=== PATIENT | female | born 1975 | race Caucasian/White ===

== ENCOUNTER → 2019-04-22 | Outpatient (CLI) | payer SELFPAY ==
--- NOTE | 2019-04-22 12:27 | PCVCIMAG ---
APPROVED REPORT Study performed: 04/22/2019 10:51:11 Exam: Stress Echocardiogram Indication: Palpitations, chest pressure Patient Location: Echo lab Stress Nurse: Adelita Kruger RN Status: routine Ht: 5 ft 7 in HR: 81 bpm BP: 104/70 mmHg Rhythm: NSR Procedure The patient underwent an Exercise Stress Test using the Calvin Protocol. Blood pressure, heart rate, and EKG were monitored. An Echocardiogram was performed by catheterization laboratory technician in four stages in quad fashion. At peak stress, four selected images were obtained and placed side by side with resting images for comparison. Stress Test Details Stress Test: Exercise stress testing was performed using a Calvin protocol. HR Resting HR: 81 bpmMax Heart Rate (APMHR): 177 bpm Max HR Achieved: 187 bpmTarget HR (85% APMHR): 150 bpm % of APMHR: 105 Recovery HR: 105 bpm HR response to stress: Normal HR response to stress BP Resting BP: 104/70 mmHg Max BP: 152/64 mmHg Recovery BP: 116/70 mmHg BP response to stress: Normal blood pressure response to stress. ECG Resting ECG: Sinus Rhythm, nonspecific ST-T abnormalities Stress ECG: Sinus Rhythm ST Change: Normal Maximum ST Deviation: 0 mm Arrhythmia: None Recovery ECG: Sinus Rhythm Recovery ST Change: Normal Recovery ST Deviation: 0 mm Recovery Arrhythmia: None Clinical Reason for Termination: Maximal effort Stress Symptoms: Dyspnea Exercise duration: 13 min 21 sec Highest Stage Achieved: Stage 5: 5.0 mph at 18% grade. Exercise capacity: 17.2 METs Overall Exercise Capacity for Age: Excellent Scale: Active Angina Score: None Stress ECG Conclusion Clinical: Non-ischemic ECG: Non-ischemic Gutierres Treadmill Score is 13.0 which is Low risk. Pre-Stress Echo The resting Echocardiogram showed normal left ventricular contractility with an estimated Ejection Fraction of about >55%. The resting echocardiogram demonstrated normal wall motion in all wall segments. Normal wall motion in all segments on baseline images. Post-Stress Echo The stress Echocardiogram showed normal left ventricular contractility with an estimated Ejection Fraction of about 60-65%. Compared to rest, there were no stress-induced wall motion abnormalities. Normal augmentation of wall motion in all segments on post stress images. Clinical No clinical or ECG evidence for ischemia. Conclusion Clinical Response: Non-ischemic Exercise Capacity: Superior Stress ECG Response: Non-ischemic Stress Echo Images: Non-ischemic The left ventricle is normal in size and wall thickness in both the rest and stress images. Mild-moderate mitral regurgitation. Mild tricuspid regurgitation with PAP of 39 mmHg. Trace pulmonic regurgitation. Normal aortic valve. No other valvular insufficiency or stenosis present. Normal stress echocardiogram with maximal exercise stress. Other Information Study Quality: Adequate <Conclusion> The left ventricle is normal in size and wall thickness in both the rest and stress images. Mild-moderate mitral regurgitation. Mild tricuspid regurgitation with PAP of 39 mmHg. Trace pulmonic regurgitation. Normal aortic valve. No other valvular insufficiency or stenosis present. Normal stress echocardiogram with maximal exercise stress.
== END | disposition home or self-care (01) ==
LOC: PCVCIMAG 11:06
PROVIDERS: ATTEND Family Medicine
DX: I08.1 Rheumatic disorders of both mitral and tricuspid valves (principal); R00.2 Palpitations
CPT/HCPCS: 93325; 93351